=== PATIENT | male | born 1960 | race Caucasian/White ===

== ENCOUNTER 2018-03-28 10:09 | Observation (INO) ==
--- NOTE | 2018-03-28 10:23 | PDOC ---
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 The rider was plan for over 3 minutes on the left side of his body with his left leg and the horse. He is now complaining of severe left-sided chest pain and left ankle pain. Patient's injuries occurred approximately 45 minutes ago. He denies any loss of consciousness, states he did not hit his head. Patient was able to ambulate on his injured left ankle but has significant swelling and tenderness to palpation on the lateral malleolus as well as the lateral distal lower leg. Have you received a tetanus shot in the past 10 years?: Unknown Body Location Affected: REPORTS: Lower Extremity (L), Chest Timing: REPORTS: Abrupt Duration: 1 hour Severity: Severe Quality: REPORTS: "Pain" Location at Time of Onset: REPORTS: Work Associated Symptoms: REPORTS: Trouble Breathing, Recalls Injury, Recalls Coming to ER Any Prior Injuries Related to Current Complaint?: No - Patient Home Medications Home Medications: Home Medications Lysine 500 mg PO DAILY 08/31/11 Naproxen 500 mg PO BID #60 tab 05/04/15 aspirin 81 mg tablet,delayed release 1 tab PO DAILY 11/20/17 fexofenadine 60 mg tablet 60 mg PO QDAY tab 11/20/17 mometasone-formoterol HFA 200 mcg-5 mcg/actuation aerosol inhaler 2 puff INH BID #3 inhaler 11/20/17 albuterol sulfate HFA 90 mcg/actuation aerosol inhaler 2 puff INH Q4-6H #3 inhaler 01/15/18 - Patient Allergies Allergies/Adverse Reactions: Allergies 3 Allergy/AdvReac Type Severity Reaction Status Date / Time Penicillins Allergy Intermediate rash Verified 03/28/18 12:55 Past Medical History - heen HEENT History: Denies History Cardiovascular History: Denies History Respiratory History: Asthma Gastrointestinal History: Denies History Genitourinary History: Denies History Endocrine History: Denies History Musculoskeletal History: Denies History Neurological History: Denies History Blood Disorders: Denies History Psychiatric History: Denies History History of Sexually Transmitted Diseases: No Cancer History: Denies History History of MDRO: No History of Other Communicable Diseases: No Alcohol Use: Occasionally In the Past 12 Months, Have Used or Abuse Any Substance: None Previous Surgical History: Yes Type / Date of Surgery: right ankle surgery. vasectomy Anesthesia Reactions: No Significant Family History: No pertinent family hx ROS - Limitations ROS Limitations: No Limitations Constitution: REPORTS: Denies Symptoms Cardiovascular: REPORTS: Chest Pain Respiratory: REPORTS: Hurts To Breathe, Shortness Of Breath Neurological: REPORTS: Denies Neuro Symptoms Gastrointestinal: REPORTS: Nausea Endocrine: REPORTS: Denies Symptoms Musculoskeletal: REPORTS: Joint Pain (Left ankle), Lower Extremity Swelling ( Left lower extremity) Genitourinary: REPORTS: Denies Symptoms Eyes: REPORTS: Denies Symptoms ENT: REPORTS: Denies Symptoms Skin: REPORTS: Denies Skin Symptoms Lympathic: REPORTS: Denies Lympathic Symptoms Immunologic: POSITIVE: Denies Symptoms Psychiatric: POSITIVE: Denies Psych Symptoms Multiple Trauma Exam - General Appearance General Appearance: POSITIVE: Alert, Cooperative, Moderate Distress - HEENT Head / Face: POSITIVE: Atraumatic, Normal Inspection, No Facial Swelling Eyes: POSITIVE: Inspection Normal, PERRL, EOM's Intact, Eyelids Uninjured, Conjunctivae Uninjured, No Nystagmus, No Globe Trauma, Sclera Normal Ears: POSITIVE: Ears Normal Inspection, Auricle Normal Nose: POSITIVE: Inspection Normal, No Apparent Trauma, Nares Normal, No CSF Leak Oropharynx: POSITIVE: External Inspection Nml, Pharynx Inspect. Nml, Airway Intact, Voice Normal, Moist Mucous Membranes, No Oral Injury, Lips Normal, Gums Normal, No Drooling, No Thrush - Pupil Size Pupil Size: 4 mm: Bilateral - Neck Neck: POSITIVE: Non Tender, Painless ROM, Trachea Midline, Nexus Criteria Negative - Respiratory / CVS Respiratory / CVS: POSITIVE: Breath Sounds Normal, Heart Sounds Normal, Regular Rate/Rhythm, Rib Tenderness, Rib Palpable FX (Posterior lateral left rib fracture at the level of T6,7, and 8), Splinting, Tenderness Peripheral Pulses: Radial (R): 4+, Dorsalis-pedis (R): 4+, Dorsalis-pedis (L): 4 + - Abdomen Abdomen: Soft: (All Quadrants), Normal Bowel Sounds: (All Quadrants), Denies Tenderness: (All Quadrants), No Splenomegaly: (All Quadrants), No Hepatomegaly: (All Quadrants), No Guarding: (All Quadrants), No Rebound: (All Quadrants), No Palpable Pulse: (All Quadrants), No Palpabale Mass: (All Quadrants), No Distention: (All Quadrants), No Rigidity: (All Quadrants) - Neuro / Psych Neuro / Psych: POSITIVE: 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, 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 As Tested, Motor Normal, Sensation Normal, Mood Appropriate, Affect Appropriate - Skin Skin: POSITIVE: Intact, Warm, Dry - Back Back: POSITIVE: CVA Tenderness (L), Muscle Spasm - Extremities Extremity Assessment: Non-Tender: (RUE), (LUE), (RLE), Normal ROM: (RLE), (LUE) , (RUE), No Edema: (RUE), (LUE), (RLE), Normal Inspection: (RUE), (LUE), (RLE), No Swelling: (RLE), (LUE), (RUE), Pelvis Stable: (ALL), Normal Tendon Exam: (ALL ), Tender: (LLE), Abnormal ROM: (LLE), Ecchymosis: (LLE), Swelling: (LLE), Hematoma: (LLE), Bony Point Tenderness: (LLE) Procedures - Laceration/Wound Repair Did patient have a laceration repair: No Multiple Trauma Progress - Results Reviewed by me Xrays/CTs/US Reviewed by me: Yes Discussed with Radiologist: Yes Lab Results Reviewed by Me: Yes Lab Results:: Laboratory Results 3 03/28/18 03/28/18 03/28/18 10:15 10:15 10:15 WBC 14.74 H RBC 4.52 L Hgb 14.8 Hct 43.1 MCV 95.4 H MCH 32.7 H MCHC 34.3 RDW Std Deviation 48.2 RDW Coeff of Marquise 14.0 Plt Count 290 MPV 9.5 Immature Gran % (Auto) 0.6 Neut % (Auto) 84.4 H Lymph % (Auto) 8.5 L [place] % (Auto) 5.9 Eos % (Auto) 0.4 Baso % (Auto) 0.2 Immature Gran # (Auto) 0.09 Neut # (Auto) 12.43 Lymph # (Auto) 1.26 [place] # (Auto) 0.87 H Eos # (Auto) 0.06 Baso # (Auto) 0.03 WBC Morphology Comment Normal morphology Plt Morphology Comment Normal morphology RBC Morph Comment Normal morphology PT 10.4 INR 0.98 Sodium 143 Potassium 4.3 Chloride 106 Carbon Dioxide 24 Anion Gap 13 BUN 22 Creatinine 1.0 Estimated GFR > 60 BUN/Creatinine Ratio 22.00 H Glucose 121 H Calculated Osmolality 299.0 H Lactic Acid Calcium 9.4 Total Bilirubin 0.7 AST 27 ALT 26 Alkaline Phosphatase 77 Total Protein 7.2 Albumin 4.6 Globulin 2.6 Albumin/Globulin Ratio 1.70 Amylase 90 Lipase 179 TSH Serum Alcohol < 10 3 03/28/18 03/28/18 10:15 10:15 WBC RBC Hgb Hct MCV MCH MCHC RDW Std Deviation RDW Coeff of Marquise Plt Count MPV Immature Gran % (Auto) Neut % (Auto) Lymph % (Auto) [place] % (Auto) Eos % (Auto) Baso % (Auto) Immature Gran # (Auto) Neut # (Auto) Lymph # (Auto) [place] # (Auto) Eos # (Auto) Baso # (Auto) WBC Morphology Comment Plt Morphology Comment RBC Morph Comment PT INR Sodium Potassium Chloride Carbon Dioxide Anion Gap BUN Creatinine Estimated GFR BUN/Creatinine Ratio Glucose Calculated Osmolality Lactic Acid 1.4 Calcium Total Bilirubin AST ALT Alkaline Phosphatase Total Protein Albumin Globulin Albumin/Globulin Ratio Amylase Lipase TSH 2.20 Serum Alcohol CBC and BMP: 03/28/18 10:15 03/28/18 10:15 EKG Interpretation:: POSITIVE: Normal Sinus Rhythm, Normal Rate, Normal Intervals, Normal [place], Normal QRS, Normal ST/T - Patient's Progress Pain Medication Addressed: POSITIVE: Yes Re-Examine Time:: 13:30 Status: POSITIVE: Improved MDM / ED Course: Patient was evaluated, an IV started, blood drawn and sent to the lab for studies, EKG and radiologic studies were also obtained. Findings: EKG, per my interpretation, shows a normal sinus rhythm with no ST changes. CT scan of his head and neck show no acute intracranial or bony abnormalities. CT scan of his chest shows a left pneumothorax approximately 1-2 % with posterior rib fractures numbers [address] scan of abdomen and pelvis show no acute intra-abdominal or intrapelvic abnormalities. CBC shows elevation of his white count to 14.74 hemoglobin is 14.8 hematocrit of 43.1 and platelets 290. Comprehensive metabolic panel shows glucose of 121 the remainder the panel is within normal limits. INR is 0.98. Amylase is 90. Lipase is 179. TSH is 2.20. Blood alcohol is less than 10. Assessment: Traumatic fall with rib fractures and broken left ankle. Patient was evaluated by the trauma surgeon is being admitted for pain control. Plan: Admission, pain control, splinting of his left ankle with posterior splint and anterior stirrup. Crutches for ambulation. Elevate ankle and ice. Dr. Velarde, the on-call orthopedic surgeon, has been contacted and will be seeing this patient for ORIF of his left ankle. Trauma surgeon, Dr. Reeves , is admitting this patient for observation and pain control from his traumatic injuries. - Consult Counseled: POSITIVE: Patient, Family, RE: Lab Results, RE: Radiology Results, RE : DX Patient Care Time - Estimated PCT Patient Care Time (In Minutes): 45 Vital Signs - Recent Vital Signs Vital Signs: Vital Signs (Last 8 hours) Temp Pulse Resp BP BP Pulse Ox 03/28/18 12:52 98.6 F 100 18 127/78 93 03/28/18 10:20 97.8 F 117 H 16 145/85 93 - VS Reviewed Vital Signs Reviewed: Yes Discharge Clinical Impression: Ribs, multiple fractures, Ankle fracture Discharge Disposition: Admit to Inpatient Condition: Fair Follow Up With: KEYLA MONTENEGRO FNP [Primary Care Provider] - Date Decision to Admit to Inpatient: 03/28/18 Time Decision to Admit to Inpatient: 13:30
[2018-03-28 10:30] LABS: BASOPHILS # (AUTO) 0.03 10*3/UL; BASOPHILS % (AUTO) 0.2 % (0-1); EOSINOPHILS # (AUTO) 0.06 10*3/UL; EOSINOPHILS % (AUTO) 0.4 % (0-8); Hematocrit [HCT] 43.1 % (42.0-52.0); Hemoglobin [HGB] 14.8 g/dL (14.0-18.0); LYMPHOCYTES # (AUTO) 1.26 10*3/uL; MEAN CORPUSCULAR HEMOGLOBIN 32.7 PG (27-31); MEAN CORPUSCULAR HGB CONC 34.3 g/dL (33-37); MEAN CORPUSCULAR VOLUME 95.4 FL (80-90); MEAN PLATELET VOLUME 9.5 FL (7.4-12.2); MONOCYTES # (AUTO) 0.87 10*3/UL (0.3-0.8); MONOCYTES % (AUTO) 5.9 % (5-15); NEUTROPHILS # (AUTO) 12.43 10*3/UL; NEUTROPHILS % (AUTO) 84.4 % (50-80); RED BLOOD COUNT 4.52 10^6/uL (4.70-6.10)
[2018-03-28 10:41] LABS: BLOOD UREA NITROGEN 22 mg/dL (7-22); LIPASE 179 IU/L (23-300); SERUM ALBUMIN 4.6 g/dL (3.5-4.8)
[2018-03-28 10:47] LABS: PLATELET MORPHOLOGY COMMENT NORMAL MORPHOLOGY (NORM); RBC MORPHOLOGY COMMENT NORMAL MORPHOLOGY (NORM); WBC MORPHOLOGY COMMENT NORMAL MORPHOLOGY (NORM)
--- NOTE | 2018-03-28 10:51 | EKG ---
[address] [address] Measurements Intervals [place] Rate: 105 P: 72 GA: 144 QRS: 29 QRSD: 117 T: 71 QT: 347 QTc: 408 Interpretive Statements SINUS TACHYCARDIA INCOMPLETE RIGHT BUNDLE BRANCH BLOCK ABNORMAL RHYTHM ECG No previous ECG available for comparison Electronically Signed On 03-30-18 17:37:41 MDT by Jimy Horn [email or web address]
[2018-03-28] MEDS ORDERED: Sodium Chloride 0.9% 1,000 ML PRIMARY IV ONE (10:58)
[2018-03-28] MEDS ORDERED: ONDANSETRON 4 MG/2 ML VIAL IVP ONE (10:58)
[2018-03-28] MEDS ORDERED: MORPHINE SULFATE 4 MG/1 ML IVP ONE (10:58)
--- NOTE | 2018-03-28 11:23 | DI ---
AP CHEST X-RAY, 03/28/2018 10:18 AM : Clinical History: Trauma. Previous Exam: None at this facility. There is no subcutaneous emphysema. There are posterior fractures of the left fourth through seventh ribs. Heart size is normal. There is a small apical pneumothorax probably in the range of 1%. Minimal left lower lobe atelectasis is present. Mediastinal structures are normal. There are no pulmonary no dules. Reading: Small left 1% apical pneumothorax with fractures of the left fourth through seventh ribs posteriorly.
--- NOTE | 2018-03-28 13:54 | PDOC ---
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 The horse landed on him. He was actually pending the horse. Patient denies losing consciousness. He states he saw stars though. Of course is very able to get up and he is able to crawl up to get some help. He is not complaining of any shortness of breath. He denies any neck pain. He denies any abdominal pain. Patient has a history of asthma. Workup in the emergency department included chest x-ray shows small apical pneumo. Patient subsequent he had CT scan which showed a 20 % pneumothorax. Patient again is asymptomatic based on this. Glossocoma is 15. Patient can answer serial 7 questions. Patient also has a left ankle fracture which is under the management of Dr. Velarde Past Medical History Medical History: Asthma Tobacco Use: Never Smoker Do you dip or chew tobacco: Yes In the Past 12 Months, Have Used or Abuse Any of the Following Substance: None Medication / Allergies Home Medications: Home Medications 3 Medication Instructions Recorded Confirmed Type Lysine 500 mg PO DAILY 08/31/11 03/28/18 History Naproxen 500 mg PO BID #60 tab 05/04/15 03/28/18 History aspirin 81 mg tablet,delayed 1 tab PO DAILY 11/20/17 03/28/18 History release fexofenadine 60 mg tablet 60 mg PO QDAY tab 11/20/17 03/28/18 History mometasone-formoterol HFA 200 2 puff INH BID #3 inhaler 11/20/17 03/28/18 Rx mcg-5 mcg/actuation aerosol inhaler albuterol sulfate HFA 90 2 puff INH Q4-6H #3 inhaler 01/15/18 03/28/18 Rx mcg/actuation aerosol inhaler Allergies/Adverse Reactions: Allergies 3 Allergy/AdvReac Type Severity Reaction Status Date / Time Penicillins Allergy Intermediate rash Verified 03/28/18 12:55 Review of Systems - Review of Systems All Systems: Reviewed & No Additional Complaints Except as Stated Exam - Vitals Vital Signs: Vital Signs Temperature 98.6 F Temperature Source Temporal Artery Scan Pulse Rate [Pulse Oximeter] 100 Respiratory Rate 18 Blood Pressure [Right Arm] 127/78 Blood Pressure [Left Arm] 145/85 Pulse Ox 93 Oxygen Delivery Method Room Air Height 5 ft 8 in Weight 175 lb - General General Appearance: No Acute Distress, Cooperative - Head Head Exam: Normocephalic, Atraumatic - Eye Eye Exam: POSITIVE: PERRL, EOMI - Neck Neck Exam: No Tenderness - Respiratory Respiratory Exam: POSITIVE: Clear to Auscultation - Bilaterally, Breathing Non Labored - Cardiovascular Cardiovascular Exam: POSITIVE: RRR, No Murmur - GI/Abdominal GI/Abdominal Exam: POSITIVE: Non Tender, Non Distended, Soft - Rectal Rectal Exam: POSITIVE: Deferred - External Exam: POSITIVE: Deferred - Extremities Extremities Exam: POSITIVE: Full ROM Additional Extremities Exam Details: Patient has a posterior splint on the left ankle and ice - Neurological Neurological Exam: POSITIVE: Alert, Oriented x 3, CN II-XII Intact Results - Labs CBC and BMP: 03/28/18 10:15 03/28/18 10:15 Assessment and Plan - Patient Problems (1) Ankle fracture Current Visit: Yes Status: Acute Code(s): S82.899A - Other fracture of unspecified lower leg, initial encounter for closed fracture (2) Ribs, multiple fractures Current Visit: Yes Status: Acute Code(s): S22.49XA - Multiple fractures of ribs, unspecified side, initial encounter for closed fracture (3) Asthma Current Visit: No Status: Chronic Code(s): J45.909 - Unspecified asthma, uncomplicated Qualifiers: (4) Pneumothorax, left Current Visit: Yes Status: Acute Code(s): J93.9 - Pneumothorax, unspecified - Assessment / Plan Additional Assessment/Plan Details: I do think the patient is coming for pain management. Also get a repeat chest x -ray and see if the pneumothorax is expanded (accident happened roughly around 8 AM this morning).
[2018-03-28] MEDS ORDERED: ONDANSETRON 4 MG/2 ML VIAL IVP PRN (14:50)
[2018-03-28] MEDS ORDERED: CALCIUM CARBONATE 500 MG (TUMS) CHEWABLE TABLET PO PRN (14:50)
[2018-03-28] MEDS ORDERED: DOCUSATE 100 MG CAPSULE PO PRN (14:50)
[2018-03-28] MEDS ORDERED: LIDOCAINE W/ SODIUM BICARB 0.5 ML SYR SUBD PRN (14:50)
[2018-03-28] MEDS ORDERED: ALBUTEROL SULFATE INH SCH (14:50)
[2018-03-28] MEDS ORDERED: ALBUTEROL SULFATE 2.5 MG/3 ML NEB PRN (15:30)
[2018-03-28] MEDS: MORPHINE SULFATE 2 MG/1 ML IVP PRN (15:35)
--- NOTE | 2018-03-28 15:50 | DI ---
AP CHEST X-RAY, 03/28/2018 2:27 PM : Clinical History: Pneumothorax. Followup film. Previous Exam: 03/28/2018 at 1828 hours. Multiple left-sided rib fractures are again visualized. Heart size is normal. The apical pneumothorax is larger than on the previous exam. However, the CT scan of the chest show that there was a larger pneumothorax in the left lower lung field. Based on the apical pneumothorax, there probably has been only modest increase in the pneumothorax that is comparable with the severity of the pneumothorax see n on the CT chest scan. Reading: There has been slight increase in the left pneumothorax but probably no worse than on the recent CT s can of the chest obtained earlier today.
[2018-03-28] MEDS: BUDESONIDE 0.5 MG/2 ML NEB SCH (18:21)
[2018-03-28] MEDS: ARFORMOTEROL NEB SOLN 15 MCG/2 ML NEB SCH (18:35)
[2018-03-28] MEDS: KETOROLAC 15 MG/1 ML VIAL IVP PRN (20:25)
--- NOTE | 2018-03-28 20:31 | DI ---
LEFT ANKLE, 03/28/2018 10:19 AM: Clinical History: Trauma. Previous Exam: None at this facility. 3 views are submitted. There is a nondisplaced fracture of the distal fibula. Slight widening of the medial aspect of the mortise joint is noted and there is soft tissue swelling medially suggesting inj ury to the deltoid ligament. The remainder of the examination is normal. Reading: Nondisplaced fracture of the distal fibula with widening of the medial ankle mortise suggesting injur y to the deltoid ligament.
[2018-03-28] MEDS: NICOTINE 21 MG /DAY PATCH TRANSDERM SCH (20:39)
--- NOTE | 2018-03-28 20:40 | DI ---
CT HEAD SCAN WITHOUT IV CONTRAST, 03/28/2018 10:43 AM : Clinical History: Trauma. Previous Exam: None at this facility. Scans are obtained from the foramen magnum to the vertex without IV contrast. The 4th, 3rd, and lateral ventricles are of normal size, shape, position, and contour for the patient 's age. There are no abnormal areas of increased or decreased density. Specifically, there is no evid ence of an acute intracranial hemorrhagic focus. There is mild cerebral atrophy. There are no extrace rebral mantles or shift of the midline structures. Bone window evaluation is normal. The paranasal si nuses are normal. READIN. There is no evidence of an acute intracranial hemorrhagic focus. 2. Mild cerebral atrophy. A verbal report of this examination was given to the emergency room physician at 1130 hours.
[2018-03-28] MEDS: FAMOTIDINE 20 MG TABLET PO SCH (20:43)
--- NOTE | 2018-03-28 20:48 | DI ---
CT CERVICAL SPINE WITHOUT CONTRAST, 03/28/2018 10:43 AM : Clinical History: Trauma. Previous Exam: None at this facility. Scans are performed from the mid body of T2 to the base of the skull without contrast. Sagittal and c oronal reformatted images are generated. Curved coronal and reformatted axial scans parallel to the d isc spaces are produced. The vertebral bodies are of normal height and size. There is mild to moderate disc space narrowing at every cervical disc space. No fractures are identified. Mild arthritic changes are noted bilaterally in all of the uncovertebral and zygapophyseal joints from C2-3 through C6-7. Posterior alignment and lateral masses are normal. C1 articulates normally with C2 and the occiput. Prevertebral soft tissue planes are normal. High resolution thin slices through the cervical disc spaces show a central bulging but not herniated disc at C2-3 without canal or neural foraminal stenosis. C2-3 has a central bulging disc that is par tially calcified without canal stenosis but with neural foraminal stenosis. C4-5 has a larger central bulging and partially calcified disc and there is canal stenosis in the AP diameter with bilateral n eural foraminal stenosis. C5-6 and C6-7 have bulging but not herniated discs with severe spinal canal stenosis in the AP diameter and with bilateral neural foraminal stenosis. The lower disc spaces are obscured by artifacts. READIN. There is no fracture or dislocation of the cervical spine. 2. There is spinal canal stenosis from C4-5 through C6-7 with bilateral neural foraminal stenosis. 3. Chronic disc space narrowing is present at every cervical level with mild arthritic changes in th e zygapophyseal and uncovertebral joints bilaterally from C2-3 through C6-7. Comment: The results of this study were discussed with the attending ER physician at 1130 hours.
--- NOTE | 2018-03-28 21:27 | DI ---
CT CHEST SCAN WITH IV CONTRAST, 03/28/2018 10:18 AM : Clinical History: Trauma. Previous Exam: None at this facility. Scans are performed from the base of the neck to the lower lung bases with IV contrast. 90 mL of Isov ue 300 was injected IV. Sagittal and coronal images using non MIPS and MIPS technique are generated. The base of the neck and thoracic inlet are normal. There are no abnormal axillary, supraclavicular, mediastinal, or hilar nodes. The heart is normal. There are no coronary artery calcifications. The th oracic aorta and the pulmonary arteries are also normal. There is a small hemothorax on the left side with a 15-20% left pneumothorax without tension. There is discoid atelectasis in the right middle lo be and right lower lobe. Multiple left posterior and lateral fractures are present from the third thr ough 10th ribs with areas of small gas bubbles indicating subcutaneous emphysema. There is no evidenc e of a flail chest. No pulmonary contusion is identified. There is anterior wedging of the body of T5 , but there is no visible fracture and there is no paravertebral widening indicating this is an old c ompression fracture or developmental process. READIN. There is a left 15-20% pneumothorax without tension with a small amount of blood indicating a sma ll left hemothorax. 2. There are nondisplaced posterior lateral left rib fractures from the third through the 10th ribs. 3. The aorta and pulmonary arteries are normal. Comment: Reference to the larger pneumothorax on the CT scans versus a chest x-ray was relayed to the emergency room physician at 1130 hours. I had indicated previously to the ER physician there were fr actures of the left fourth through seventh ribs, but upon review of this CT study, there are actually fractures through the left third through 10th ribs.
--- NOTE | 2018-03-28 21:32 | DI ---
CT ABDOMEN SCAN WITH IV CONTRAST, 03/28/2018 10:18 AM : Clinical History: Trauma. Previous Exam: None at this facility. Scans are performed from the lower lung bases through the liver and kidneys with IV contrast. This is the same bolus of contrast used for the CT chest scan. No oral or rectal contrast was ordered. There is a left hemopneumothorax that was previously described along with multiple left-sided posteri or rib fractures. There are 2:15 millimeter low-density lesions in the right lobe of the liver consis tent with liver cysts. No fracture of the liver is identified. The gallbladder is grossly normal. The re is no abnormality of the spleen, pancreas, and adrenal glands. Both kidneys are normal in size, sh ape, position and contour. There is no hydronephrosis or hydroureter. No renal or ureteral calculi ar e present. There are no abnormal retrocrural or periaortic nodes. No ascites is present. READING: Normal CT abdomen scan. CT PELVIS SCAN WITH IV CONTRAST, 03/28/2018 10:18 AM: Clinical History: See above. Previous Exam: None at this facility. Scans are performed from just superior to the umbilicus to the symphysis pubis with IV contrast. This is the same bolus of contrast used for the CT scans of the chest and abdomen. Scans through the lower abdomen and pelvis show no masses, enhancing lesions, or abnormal fluid colle ctions. There is no adenopathy. The appendix is normal. The small bowel, terminal ileum, and ileoceca l valve are normal. The colon is also normal. There is a very small umbilical hernia through which on ly mesenteric fat has herniated. No fractures of the lumbar spine, sacrum, pelvis, or hips are identi fied. READING: Normal CT scan of the pelvis with IV contrast. Comment: The results of this study were verbally discussed with the attending ER physician at 1130 ho urs.
[2018-03-29] MEDS: MORPHINE SULFATE 2 MG/1 ML IVP PRN ×2 (01:29→05:35)
[2018-03-29] MEDS: BUDESONIDE 0.5 MG/2 ML NEB SCH (06:35)
[2018-03-29] MEDS: ARFORMOTEROL NEB SOLN 15 MCG/2 ML NEB SCH ×2 (06:35→18:59)
--- NOTE | 2018-03-29 08:36 | DI ---
INDICATION: Comparison: CXR 03/28/18 COMPARISON: Pneumothorax FINDINGS: Single frontal view of the chest is provided. Again demonstrated are multiple left-sided rib fractures. The previously reported apical component of the left pneumothorax is not visualized. There are possible pleural reflection specialists the lung base, suggesting persistent basilar component of the pneumothorax. There is a small left pleural effusion/hemothorax with left basilar airspace disease, likely atelectasis. The right lung is clear. The cardiomediastinal silhouette is able. Pulmonary vascularity is normal. IMPRESSION: 1. Multiple left-sided rib fractures with small left hemothorax and left basilar atelectasis which does not appear significantly changed. 2. Pleural reflections suggested at the left lung base which may represent persistent basilar component of the left pneumothorax. The apical component is no longer clearly visualized by radiograph.
[2018-03-29] MEDS: FAMOTIDINE 20 MG TABLET PO SCH ×2 (08:42→19:59)
[2018-03-29] MEDS: NICOTINE 21 MG /DAY PATCH TRANSDERM SCH (08:42)
[2018-03-29] MEDS: KETOROLAC 15 MG/1 ML VIAL IVP PRN (09:25)
--- NOTE | 2018-03-29 09:38 | PDOC(PROG) ---
Date and Time of Service: 03/29/2018 at 935 Interval History: Patient states he is feeling fine. He still very sore. He is not ambulating very well. Objective : Data - Labs CBC and BMP: 03/28/18 10:15 03/28/18 10:15 - Vital Signs Vital Signs and I&O: Vital Signs - Last Taken Temperature 98.5 F 03/29/18 07:06 Pulse Rate 86 03/29/18 07:06 Respiratory Rate 16 03/29/18 07:06 Blood Pressure 116/61 03/29/18 07:06 Pulse Ox 90 03/29/18 07:06 Intake and Output (24hr x 4 totals) 03/27/18 03/28/18 03/29/18 03/30/18 05:59 05:59 05:59 05:59 Output Total 850 / 850 Balance -850 / -850 Objective : Exam - General General Appearance: No Acute Distress, Cooperative - Respiratory Respiratory Exam: Clear to Auscultation - Bilaterally, Breathing Non Labored Assessment and Plan - Patient Problems (1) Ankle fracture Current Visit: Yes Status: Acute Code(s): S82.899A - Other fracture of unspecified lower leg, initial encounter for closed fracture (2) Ribs, multiple fractures Current Visit: Yes Status: Acute Code(s): S22.49XA - Multiple fractures of ribs, unspecified side, initial encounter for closed fracture (3) Asthma Current Visit: No Status: Chronic Code(s): J45.909 - Unspecified asthma, uncomplicated Qualifiers: (4) Pneumothorax, left Current Visit: Yes Status: Acute Code(s): J93.9 - Pneumothorax, unspecified - Assessment / Plan Additional Assessment/Plan Details: Overall he is doing very well. Chest x-ray shows of the pneumothorax has not increased in size. Our biggest problem is getting anvil story. PT still working with him on this. He is to have his ankle surgery on 03/31/2018
[2018-03-29] MEDS: buPROPion XL Tab 150 MG TAB PO SCH (15:06)
[2018-03-29] MEDS: oxyCODONE/APAP 7.5/325 Tab 1 TAB TAB PO PRN ×2 (15:12→19:59)
[2018-03-30] MEDS: oxyCODONE/APAP 7.5/325 Tab 1 TAB TAB PO PRN ×4 (01:04→13:35)
[2018-03-30 04:52] VITALS: TEMP 97
[2018-03-30] MEDS: ARFORMOTEROL NEB SOLN 15 MCG/2 ML NEB SCH (07:01)
[2018-03-30] MEDS: BUDESONIDE 0.5 MG/2 ML NEB SCH (07:03)
[2018-03-30 08:18] VITALS: BP 121/56; RESP 16
--- NOTE | 2018-03-30 08:23 | DI ---
INDICATION: Left pneumothorax COMPARISON: CXR, 03/29/18 FINDINGS: Single frontal view of the chest is provided. The right lung is clear. There is persistent left basilar effusion/hemothorax with left basilar atelectasis. No pneumothorax is present the visualized. The cardiomediastinal silhouette is stable. Pulmonary vascularity is normal. Multiple nondisplaced left-sided rib fractures are again demonstrated. IMPRESSION: 1. Persistent left basilar pleural effusion/hemothorax with adjacent atelectasis. The pneumothorax is not clearly visualized.
[2018-03-30] MEDS: FAMOTIDINE 20 MG TABLET PO SCH (08:55)
[2018-03-30] MEDS: buPROPion XL Tab 150 MG TAB PO SCH (08:55)
[2018-03-30] MEDS: NICOTINE 21 MG /DAY PATCH TRANSDERM SCH (08:55)
[2018-03-30 11:00] VITALS: O2SAT 93
--- NOTE | 2018-03-30 11:46 | DCSUMMARY ---
Discharge Summary Admit Date: 03/28/18 Discharge Date: 03/30/18 Admitting Diagnosis: left pneumothorax, left rib fractures, left ankle fracture Discharge Diagnosis: Same as admission diagnosis Hospital Course: 49-year-old gentleman who had an accident with of course where he sustained multiple left rib fractures a left pneumothorax and a left ankle fracture. He is admitted for observation. He was admitted for pain management for his rib fractures and also is were observed watch in the pneumothorax. He's scheduled for April 01 to have his ankle fracture fixed. He remained hemodynamically stable. The pneumothorax are not enlarged. In fact on March 30 the pneumothorax was barely noticeable. He had reactive pleural effusion. He was off oxygen. He'll he found a way to ambulating with the aid of a scooter discharged to home on March 30. Exam - Vitals Vital Signs: Vital Signs Temperature 97.0 F Temperature Source Temporal Artery Scan Pulse Rate [Pulse Oximeter] 76 Pulse Rate 78 Respiratory Rate 16 Blood Pressure [Right Arm] 117/72 Blood Pressure [Left Arm] 121/56 Pulse Ox 93 Oxygen Flow Rate 2 Oxygen Delivery Method Room Air Height 5 ft 8 in Weight 175 lb 4 oz - General General Appearance: No Acute Distress, Cooperative - Neck Neck Exam: Normal Inspection, Full ROM - Respiratory Respiratory Exam: POSITIVE: Clear to Auscultation - Bilaterally, Breathing Non Labored - Cardiovascular Cardiovascular Exam: POSITIVE: RRR - GI/Abdominal GI/Abdominal Exam: POSITIVE: Non Tender, Non Distended, Soft Patient Problems - Patient Problem List (1) Ankle fracture Current Visit: Yes Status: Acute Code(s): S82.899A - Other fracture of unspecified lower leg, initial encounter for closed fracture Category: Medical (2) Ribs, multiple fractures Current Visit: Yes Status: Acute Code(s): S22.49XA - Multiple fractures of ribs, unspecified side, initial encounter for closed fracture Category: Medical (3) Asthma Current Visit: No Status: Chronic Code(s): J45.909 - Unspecified asthma, uncomplicated Qualifiers: Category: Medical (4) Pneumothorax, left Current Visit: Yes Status: Acute Code(s): J93.9 - Pneumothorax, unspecified Category: Medical
--- NOTE | 2018-03-31 16:32 | PTI REPORT ---
Thank you for the referral of eBrry Toscano. He was seen on 03/28/18 for an inpatient evaluation secondary to rib fractures. SUBJECTIVE: The patient is a 57-year-old male. The patient states he was riding his horse when the horse rolled over him. He states he fractured ribs 4-7 on the left posterior side. He states he also fractured his left ankle. The patient states that he currently is wearing a splint for his left ankle. After the fall , the patient walked about a mile back to his house. The patient states he has no loss of sensation, no dizziness, no lightheadedness, and no change in strength. The patient states there are three stairs to get into his home with no railing. The patient has a one story home and there are no other stairs in his home. The patient lives with his and daughter. PAST MEDICAL HISTORY: Past medical history can be found in the patient's medical record. OBJECTIVE FINDINGS: General observations: The patient is alert and oriented. Pain: The patient reports a pain level of 3/10 on the verbal analog scale (0=no pain, 10=worst pain) if he's not moving or breathing. The patient states with deep breaths he feels like his ribs are cracking. The patient states that with activity his pain level is a 9/10. Bed mobility: The patient requires min assist for all bed mobility. The patient transferred from supine to edge of bed with min assist x1. Transfers: The patient transferred from edge of bed to standing with min assist x1. Ambulation: The patient was instructed to use standard walker for ambulation and is non weight-bearing on the left side. The patient ambulated with contact guard assist x1 with standard walker to bathroom. ASSESSMENT: The patient is a 57-year-old male presenting with rib and ankle pain due to fracture. Pain is causing difficulty breathing, transferring, and ambulating, causing inability to perform ADLs independently and safely. Problem List: Difficulty ambulating Difficulty transferring Difficulty performing ADLs independently Short-Term Goals: To be met by discharge from inpatient: Patient will demonstrate safe and independent ambulation and transfers. Long-Term Goals: To be met following discharge from inpatient: Patient will be seen by outpatient physical therapy. TREATMENT PLAN: Patient will be seen B.I.D during the week and one time per day over the weekend as an inpatient for gait training and functional activity. INITIAL TREATMENT: Treatment today consisted of the initial evaluation followed by the patient ambulating to the bathroom and back to bed. The patient was transferred back into bed with min assist x1. The patient was shifted up the bed with mod assist x2. The patient was left supine in bed with call light and bed alarm set. Dictated by: EARL Alcocer Supervised by: LEONEL Blount
--- NOTE | 2018-03-31 16:53 | OTI REPORT ---
Thank you for the referral of Berry Toscano. He was seen on 03/29/18 for an occupational therapy inpatient evaluation secondary to rib fractures and a left ankle fracture. SUBJECTIVE: The patient is a 57-year-old male who is being seen secondary to breaking four ribs on the left side and his left ankle. after being in a horse accident. Prior to admission the patient lived at home with his and child in a 16x80 foot trailer. They do have three stairs without hand rails on the outside of their home. The patient is non weight-bearing on the left foot. The therapist did talk to Dr. Reeves this morning and he does want a knee scooter for the patient. The patient only has a walker at this point in time. The therapist went to outpatient surgery to get the knee scooter. PAST MEDICAL HISTORY: Past medical history can be found in the patient's medical record. OBJECTIVE FINDINGS: Bed mobility: The patient was able to come from supine to sit with min assist. Ambulation: The patient was educated on the use of the knee scooter including safety using the brakes and how to get on and off the scooter. Once the patient was able to stand, he was able to turn to get his left knee on the knee scooter. The patient ambulated approximately 20 feet with the knee scooter. Pain: With ambulation, the patient's pain level increased to 8/10 on the verbal analog scale (0=no pain, 10=worst pain). Range of motion: Once in the chair, we worked on active range of motion of upper extremities. The left shoulder demonstrated 170 degrees of motion and active assisted motion to 90 degrees. ASSESSMENT: The patient would benefit from a shower chair, which his is going to look for. His pain levels are increasing to 8/10 just with ambulation on the scooter. He feels like his pain levels are going to limit him from going home today. The patient is very slow moving with the knee scooter. He says tomorrow he would like to attempt the stairs as he will have to go up and down three stairs when he returns home. We have set up a time with his and child to address this when they are here in the morning tomorrow. Problem List: Decreased ability to perform functional transfers Increased pain Decreased ability to perform ADLs Short-Term Goals: To be met by discharge from inpatient: Patient will be able to complete stairs with min assist using walker and hand hold assist. Patient will be able to complete a shower transfer independently. Long-Term Goals: To be met following discharge from inpatient: Patient will return home with use of adaptive devices, completing functional transfers with stand by assist. TREATMENT PLAN: Patient will be seen B.I.D during the week and one time per day over the weekend as an inpatient to address the above goals and objectives. The patient may possibly be discharged tomorrow depending on his pain level and his ability to complete stairs. INITIAL TREATMENT: Treatment today consisted of the initial evaluation followed by instruction in use of knee scooter. The patient's did come in toward the end of the session. It was recommended that he get a shower chair. We did not issue the patient one as his says she is going to look for one on her own. The patient performed hip raises on the right, knee extension on the right, and ankle flexion/extension on the right x10. MTDD
--- NOTE | 2018-03-31 16:59 | OT AM DAY ---
Diagnosis : Rib Fractures/Left Ankle Fracture AM - Occupational Therapy S: The patient reports he is feeling better. Today during stairs he stated that he would not be able to push his body weight up on the left side on the walker to go up the stairs. O: Today the patient was able to dress with mod assist. The patient's is a nurse and states she will be willing to dress him at home. They have reachers at home that she will let him use. The patient also completed sit to stand transfers with stand by assist. The patient ambulated with the knee scooter to the stairwell. We attempted the walker method of pushing on the walker and hand hold assist as the patient does not have hand rails on his three stairs going into his home and then has a deck landing. The patient attempted this two different times and was not able to put weight through left arm to hop onto the stair. We did try turning around onto the second stair and he but scooted up three stairs. The therapist discussed that the family would have to lift the patient from the even level on his deck. They stated they were going to get his brother and they felt comfortable doing this. Again, the patient's is a nurse and his daughter has worked in the therapy department , so four people will be there to assist the patient going from sitting on the deck to a standing position and then getting him into the knee scooter or walker to get into his home. A: The patient's endurance is better. He was able to ambulate on the knee scooter for an increased period of time. The patient will need assistance to transfer off of the floor. P: Continue seeing patient BID during the week and one time per day over the weekend until discharge. MTDD
== END 2018-03-30 13:47 | disposition home or self-care (01) ==
LOC: MED/SURG 10:09 → ER 10:09
PROVIDERS: ADMIT Surgery; ATTEND Surgery